=== PATIENT | female | born 1980 | race Caucasian/White ===

== ENCOUNTER 2023-11-27 11:46 | Emergency (ER) | payer OTHER, SELFPAY ==
[2023-11-27 11:48] VITALS: BP 143/98
--- NOTE | 2023-11-27 12:07 | ED.GENMED ---
History of Present Illness
General
Chief Complaint: Abdominal Pain
Source: patient
Exam Limitations: none
Time Seen by Provider: 11/27/23 11:59
Travel History
Have you had any contact with someone who has COVID-19?: No
Do you have any symptoms of coronavirus? Fever > 100 degrees, chills, cough, shortness of breath, sore throat, loss of taste or smell, muscle aches, or headache?: No
History of Present Illness
History of Present Illness:
43-year-old female presents with onset of upper abdominal pain nausea vomiting and diarrhea last night. She notes fatigue and sensation of dehydration. No known sick contacts. She notes chills but no measurable fever. No blood in the vomit or
the stool. She cannot keep anything down at home. No other complaints at this time
Past History
Past History
ED Past Medical History: Psychiatric
ED Past Surgical History: Cholecystectomy, , Tonsilectomy and Other (multiple ear surgeries L; )
Social History
Tobacco: Non-smoker (occassional tobacco use )
Alcohol: Occasional
Drug: None
Personal:
Living: with family
Employment: Employed
Family History
Family History: Negative Diabetes, Hypertension or CAD
Phy Exam
Physical Exam
Physical Exam:
General: Well-appearing female no acute respiratory distress
HEENT: Normocephalic mucosa dry neck is supple
Heart: Slightly tachycardic but regular
Lungs: Clear no wheeze or Rales
Abdomen is soft nontender nondistended negative Thurman sign no guarding rebound normal bowel
Extremities: No cyanosis or edema
Course
Orders/Labs/Results
Orders:
Orders
11/27/23 11:51
EKG [Electrocardiogram (*1)] Urgent
Reason for Study: Abdominal Pain
EKG- Treatment ONCE
11/27/23 12:05
0.9% Sodium Chloride 1000 ml [Nss] 1,000 ml IV BOLUS
Famotidine [Pepcid] 20 mg IV NOW STA
Ondansetron Injectable [Zofran] 4 mg IV NOW STA
11/27/23 12:18
Complete Blood Count/With Diff Urgent
Comprehensive Metabolic Panel Urgent
Lipase Urgent
11/27/23 12:58
0.9% Sodium Chloride 1000 ml [Nss] 1,000 ml IV BOLUS
11/27/23 13:31
Ondansetron Injectable [Zofran] 4 mg IV NOW STA
11/27/23 13:32
Ondansetron Injectable [Zofran] 4 mg .ROUTE .[facility]
11/27/23 14:36
0.9% Sodium Chloride 1000 ml [Nss] 1,000 ml IV BOLUS
11/27/23 15:06
STOOL [C difficile Antigen & Toxins] Urgent
TEZ Source: Feces/Stool
Specimen Description:
Date Specimen was Collected: 11/27/23
Time Specimen was Collected: 15:04
Stool Culture Urgent
TEZ Source: Feces/Stool
Specimen Description:
Date Specimen was Collected: 11/27/23
Time Specimen was Collected: 15:05
Abnormal Lab Results
11/27/23
12:18
WBC 14.2 H 10^3/uL
(4.8-10.8)
Abs Immat Gran (auto) 0.1 H 10^3/uL
(0-0.05)
Absolute Neuts (auto) 13.2 H 10^3/uL
(1.4-6.5)
Absolute Lymphs (auto) 0.5 L 10^3/uL
(1.2-3.4)
Neutrophils % 93.2 H %
(42.2-75.2)
Lymphocytes % 3.5 L %
(20.5-51.1)
Carbon Dioxide 20 L mmol/L
(22-30)
BUN 18 H mg/dl
(7-17)
Glucose 174 H mg/dl
(70-99)
Calcium 10.4 H mg/dl
(8.4-10.2)
11/27/23 12:18
11/27/23 12:18
Vital Signs
Initial and Last Documented VS:
Initial Vital Signs
Temp Pulse Resp BP Pulse Ox
98.2 F 110 16 143/98 97
11/27/23 11:48 11/27/23 11:48 11/27/23 11:48 11/27/23 11:48 11/27/23 11:48
Last Documented Vital Signs
Temp Pulse Resp BP Pulse Ox
98.2 F 97 18 124/74 98
11/27/23 11:48 11/27/23 13:37 11/27/23 13:37 11/27/23 15:27 11/27/23 13:37
MDM/Problems Addressed
MDM/Problems Addressed:
Nausea vomiting diarrhea with abdominal discomfort. No localizing findings on exam. Likely viral illness but will check labs to evaluate for pancreatitis. Considered imaging however not indicated at this time. Will treat with Zofran Pepcid and
Fluids.
*Critical Care Note
Total Time (30-74mins, 75-104mins- exclusive of procedures): Not Applicable
Update Note
Update Note:
EKG shows sinus tachycardia with a rate of 101. Patient reevaluated multiple times. Feeling much better after 2 L of fluid but still has not made any urine. Bladder scan shows minimal amount in the bladder scan will order third liter. Suspect
underlying viral illness with dehydration. She is not tolerating ice chips plan to discharge
ED Attending Note
-
Portions of this chart may have been created with voice recognition software.� Occasional wrong word or��sound alike� substitutions may have occurred due to the inherent limitations of voice recognition software.
Discharge Plan
Departure
Patient Disposition: Home (Routine Discharge)
Date of Disposition: 11/28/23
Time of Disposition: 09:03
Presentation/result/management discussed w/ accepting MD/DO: Hospitalist
Patient with high blood pressure during this ER visit?: No
Discharge Problem:
Nausea & vomiting
Instructions: Nausea and Vomiting, Adult (DC)
Prescriptions:
New
ondansetron 4 mg tablet,disintegrating
4 mg PO Q8H PRN (Reason: nausea and vomiting) Qty: 10 0RF
No Action
omeprazole magnesium [Prilosec OTC] 20 MG tablet,delayed release (DR/EC)
20 mg PO DAILY
levonorgestrel [Mirena] 1 EACH intrauterine device
1 ea IY UD
ibuprofen 200 MG tablet
200 mg PO Q4HPRN PRN (Reason: MILD PAIN)
fluoxetine 20 MG capsule
20 mg PO DAILY
polyethylene glycol 3350 17 GRAMS powder in packet
17 grams PO PRN PRN (Reason: constipation)
cetirizine 10 MG tablet
10 mg PO DAILY
Referrals:
Aubrey Chavarrai MD [Family Provider] -
Activity Restrictions/Additional Instructions:
Drink plenty clear liquids. Advance to a bland diet as tolerated. Use Zofran if needed for nausea. Return here for worsening symptoms. You should receive a call if your stool cultures are positive
Interventions
Interventions:
*Risk Screen - Suicide Last Done: 11/27/23 11:48
*General Assessment Last Done: 11/27/23 11:48
*Neglect/Abuse Screening Last Done: 11/27/23 11:48
*Nursing Disposition Last Done: 11/27/23 15:27
TP-[id number] Assessment Last Done: 11/27/23 12:21
[2023-11-27] MEDS: NSS 1000 IV ×3 (12:17→15:35)
[2023-11-27] MEDS: ZOFRAN 4 MG IV ×2 (12:17→13:36)
[2023-11-27] MEDS: PEPCID 20 MG IV (12:17)
[2023-11-27 12:38] LABS: % Basophils 0.1 % (0-2); % Eosinophils 0.1 % (0-6); % Immature Granulocytes 0.4 % (0-0.5); % Lymphocytes 3.5 % (20.5-51.1); % Monocytes 2.7 % (1.7-9.3); % Neutrophils 93.2 % (42.2-75.2); Absolute Immature Granulocytes 0.1 10^3/uL (0-0.05); Absolute Lymphocytes 0.5 10^3/uL (1.2-3.4); Absolute Monocytes 0.4 10^3/uL (0.1-0.6); Absolute Neutrophils 13.2 10^3/uL (1.4-6.5); Hematocrit 45.3 % (37.0-47.0); Hemoglobin 15.7 g/dL (12.0-16.0); Mean Corp Hgb Conc. 34.7 g/dL (33.0-37.0); Mean Corpuscular Hgb 29.8 pg (27.0-31.0); Mean Platelet Volume 10.3 fL (7.4-10.4); Nucleated Red Blood Cells % 0 %; Platelet Count 345 10^3/uL (130-400); Red Blood Cell Count 5.27 10^6/uL (4.20-5.40); Red Cell Dist. Width 13.4 % (11.5-14.5); White Blood Cell Count 14.2 10^3/uL (4.8-10.8)
[2023-11-27 12:58] LABS: ALT (SGPT) 26 U/L (0-35); AST (SGOT) 26 U/L (14-36); Albumin 4.7 g/dl (3.5-5.0); Alkaline Phosphatase 94 U/L (38-126); Blood Urea Nitrogen 18 mg/dl (7-17); Calcium 10.4 mg/dl (8.4-10.2); Carbon Dioxide 20 mmol/L (22-30); Chloride 103 mmol/L (98-107); Glucose 174 mg/dl (70-99); Potassium 4.9 mmol/L (3.5-5.1); Sodium 137 mmol/L (135-145); Total Bilirubin 1.2 mg/dl (0.2-1.3); Total Protein 7.7 g/dl (6.3-8.2); eGFR > 60.00
[2023-11-27 13:15] LABS: Lipase 75 U/L (23-300)
[2023-11-27 13:37] VITALS: BP 121/74
[2023-11-27 15:27] VITALS: BP 124/74
== END 2023-11-27 15:27 | disposition home or self-care (01) ==
LOC: EMR 11:46
PROVIDERS: Physician Assistant; EMERGENCY PHYSICIAN Emergency Medicine; FAMILY PHYSICIAN Family Medicine
DX: R10.10 Upper abdominal pain, unspecified (principal); R11.2 Nausea with vomiting, unspecified; R19.7 Diarrhea, unspecified; R53.83 Other fatigue; R68.83 Chills (without fever); Z90.49 Acquired absence of other specified parts of digestive tract; Z88.1 Allergy status to other antibiotic agents; Z88.2 Allergy status to sulfonamides
CPT/HCPCS: 99284; 96374; 96375; 96361 ×3; 51798; 96376; 80053; 83690; 85025; 87045; 87046; 87324; 87427; 87449; 93005

== ENCOUNTER → 2023-12-25 07:39 | Outpatient (REF) | payer OTHER, SELFPAY | LOC: EMG 07:39 | PROVIDERS: ATTENDING PHYSICIAN Orthopaedic Surgery Hand Surgery; FAMILY PHYSICIAN Surgery | DX: R20.0 Anesthesia of skin (principal) | CPT/HCPCS: 95886; 95909 ==

== ENCOUNTER → 2024-09-24 16:09 | Outpatient (REF) | payer OTHER, SELFPAY | LOC: DHSLP 16:09 | PROVIDERS: ATTENDING PHYSICIAN Internal Medicine Critical Care Medicine; FAMILY PHYSICIAN Family Medicine | DX: G47.33 Obstructive sleep apnea (adult) (pediatric) (principal) | CPT/HCPCS: 95800 ==

== ENCOUNTER → 2024-11-08 11:31 | Outpatient (REF) | payer OTHER, SELFPAY | LOC: RAD 11:31 | PROVIDERS: ATTENDING PHYSICIAN Family Medicine | DX: J45.909 Unspecified asthma, uncomplicated (principal); R09.89 Other specified symptoms and signs involving the circulatory and respiratory systems | CPT/HCPCS: 71046 ==